=== PATIENT | male | born 1980 | race African-American/Black ===

== ENCOUNTER 2017-06-18 19:45 | Emergency (ER) | payer BC ==
[2017-06-18 19:56] VITALS: BP 142/91
--- NOTE | 2017-06-18 20:31 | EDM.PDOC ---
ED HPI GENERAL MEDICAL PROBLEM - General Chief Complaint: ENT Problem Stated Complaint: CONGESTION/SORETHROAT/FEVER Time Seen by Provider: 06/18/17 19:58 Source of Information: Reports: Patient History Limitations: Reports: No Limitations - History of Present Illness INITIAL COMMENTS - FREE TEXT/NARRATIVE: The patient presents with a fever, chills, cough, congestion, runny nose and headache for a couple days. He has a history of asthma. He also has had a bad headache on and off for a few weeks. The headache is usually on the right side and it is there most days for the whole day. He denies numbness, weakness, blurred vision or double vision. Onset: Gradual Duration: Day(s): (2) Location: Reports: Head Quality: Reports: Sharp Severity: Severe Improves with: Reports: None Worsens with: Reports: Other (coughing) Associated Symptoms: Reports: Cough, Fever/Chills, Shortness of Breath Treatments [employer]TE[employer]CE [employer]PER[employer]OR: Reports: Acetaminophen Throat Pain Score (Numeric/FACES): 8 Headache Pain Score (Numeric/FACES): 10 - Related Data Allergies Allergy/AdvReac Type Severity Reaction Status Date / Time No Known Allergies Allergy Verified 08/30/15 18:26 Home Meds: Home Meds Oseltamivir [Tamiflu] 75 mg PO BID #9 cap 06/18/17 [Rx] Past Medical History Respiratory History: Reports: Asthma Other Musculoskeletal History: right arm surgery with plates and screws for a fracture arm Social & Family History - Tobacco Use Smoking Status *Q: Never Smoker Second Hand Smoke Exposure: No - Caffeine Use Caffeine Use: Reports: Coffee - Recreational Drug Use Recreational Drug Use: No ED ROS ENT - Review of Systems Review Of Systems: See Below Constitutional: Reports: Fever, Chills, Malaise, Weakness HEENT: Reports: Throat Pain, Other (Congestion and runny nose) Respiratory: Reports: Cough, Sputum Cardiovascular: Reports: No Symptoms Endocrine: Reports: No Symptoms GI/Abdominal: Reports: No Symptoms : Reports: No Symptoms Musculoskeletal: Reports: No Symptoms ED EXAM, ENT - Physical Exam Exam: See Below Exam Limited By: No Limitations General Appearance: Alert, WD/WN, No Apparent Distress Ears: Normal External Exam, Normal Canal, TM Bulging (Left), TM Dullness (Left) , TM Erythema (Left) Nose: Clear Rhinorrhea Mouth/Throat: Pharyngeal Erythema Head: Atraumatic, Normocephalic Neck: Normal Inspection, Lymphadenopathy (L) Respiratory/Chest: No Respiratory Distress, Lungs Clear, Normal Breath Sounds Cardiovascular: Regular Rate, Rhythm, No Edema, No Murmur GI/Abdominal: Soft, Non-Tender, No Organomegaly, No Mass Back: Normal Inspection Extremities: Normal Inspection Neurological: Alert, Oriented, No Motor/Sensory Deficits Course - Vital Signs Last Recorded V/S: Last Vital Signs Temp 100.4 F 06/18/17 19:52 Pulse 97 06/18/17 19:52 Resp 20 06/18/17 19:52 BP 142/91 H 06/18/17 19:52 Pulse Ox 97 06/18/17 19:52 - Orders/Labs/Meds Orders: Active Orders 24 hr Category Date Time Status CXR [Chest 2V] [CR] Stat Exams 06/18/17 20:05 Taken Head wo Cont [CT] Stat Exams 06/18/17 20:05 Taken CULTURE STREP A CONFIRMATION [RM] Stat Lab 06/18/17 20:08 Results STREP SCRN A RAPID W CULT CONF [RM] Stat Lab 06/18/17 20:08 Results Labs: Laboratory Tests 06/18/17 Range/Units 20:17 Monoscreen Negative (NEGATIVE) Meds: Medications Discontinued Medications Generic Name Dose Route Start Last Admin Trade Name Irvin PRN Reason Stop Dose Admin Oseltamivir Phosphate 75 mg 06/18/17 21:04 Tamiflu PO 06/18/17 21:05 ONETIME ONE - Re-Assessments/Exams Free Text/Narrative Re-Assessment/Exam: 06/18/17 20:[address] of his head, CXR, influenza, strep and a mono. 06/18/17 21:[address] of his head is negative. His CXR looks good. His strep and mono are negative. His influenza A is positive. I will treat him with tamiflu. Departure - Departure Time of Disposition: 21:10 Disposition: Home, Self-Care 01 Condition: Good Clinical Impression: Influenza A - Discharge Information Prescriptions: Oseltamivir [Tamiflu] 75 mg PO BID #9 cap Referrals: Filiberto Perez Jr, MD [Ordering Only Provider] - 1 Week (If not better) Forms: ED Department Discharge Additional Instructions: Take the tamiflu 2 times per day until gone. Take tylenol or motrin for the pain and fever. Drink plenty of fluids and get some rest. Follow up with Dr Perez if you do not feel better next week. - My Orders Last 24 Hours: My Active Orders 06/18/17 20:05 CXR [Chest 2V] [CR] Stat Head wo Cont [CT] Stat 06/18/17 20:08 CULTURE STREP A CONFIRMATION [RM] Stat STREP SCRN A RAPID W CULT CONF [] Stat - Assessment/Plan Last 24 Hours: My Active Orders 06/18/17 20:05 CXR [Chest 2V] [CR] Stat Head wo Cont [CT] Stat 06/18/17 20:08 CULTURE STREP A CONFIRMATION [RM] Stat STREP SCRN A RAPID W CULT CONF [] Stat
[2017-06-18] MEDS ORDERED: Oseltamivir 75 MG Cap PO ONE (21:04)
--- NOTE | 2017-06-19 07:40 | CR ---
Chest: Two views of the chest were obtained. Comparison: No previous chest x-ray. Heart size and mediastinum are normal. Lungs are clear. Bony structures are grossly intact. Impression: 1. Nothing acute is identified on two-view chest x-ray. Diagnostic code #1
--- NOTE | 2017-06-19 07:40 | CT ---
Head CT Technique: Multiple axial sections through the brain were obtained. Intravenous contrast was not utilized. Comparison: No previous intracranial imaging. Findings: Ventricles along with basal cisterns and sulci over the convexities are within normal limits for the patient's age. No abnormal parenchymal densities are seen. No evidence of intracranial hemorrhage. No midline shift or mass effect is seen. Bone window settings were reviewed which show no acute calvarial abnormality. Slight mucosal thickening is noted within the ethmoid sinuses. Diffuse increased density is noted within the nasal cavity compatible with mucosal thickening. Impression: 1. Mild ethmoid sinus disease as well as mucosal thickening seen within the nasal cavity. 2. Noncontrast head CT study is otherwise unremarkable. Diagnostic code #2 I agree with preliminary report issued by [facility] ([facility] preliminary report dictated on 06/18/17, 9:40 PM Central Time)
== END 2017-06-18 21:40 | disposition home or self-care (01) ==
LOC: JD.ED 19:45
DX: J10.1 Influenza due to other identified influenza virus with other respiratory manifestations (principal); J45.909 Unspecified asthma, uncomplicated
CPT/HCPCS: 36415; 70450; 71020; 86308; 87081; 87430; 87804; 99284; A9270; 99283